=== PATIENT | male | born 1995 | race Caucasian/White ===

== ENCOUNTER 2018-12-27 17:17 | Emergency (ER) | payer SELFPAY ==
[~2018-12-27] VITALS: Ht 182.9 cm; Wt 68.0 kg
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
--- OUTSIDE RECORDS SUMMARY | 2018-12-27 17:21 | XMS REPORT | Clinical Summary ---
Author Author [facility] Organization [facility] Address Unknown Phone Unavailable Care Team Providers Care Certified Medical Transcriptionist Name Role Phone Yo Gutierrez MD PCP Allergies No Known Allergies Current Medications Prescription Sig. Disp. Refills Start End Date Status Date acetaminophen (TYLENOL) Take 1 tablet by mouth 30 tablet 0 12/26/19 Active 500 mg tabletIndications: every 6 hours as needed 18 Closed nondisplaced for Pain. fracture of neck of fourth metacarpal bone of right hand, initial encounter ibuprofen (MOTRIN) 400 mg Take 1 tablet by mouth 30 tablet 0 12/26/19 Active tabletIndications: Closed every 6 hours as needed 18 nondisplaced fracture of for Pain. neck of fourth metacarpal bone of right hand, initial encounter QUEtiapine (SEROQUEL) 300 Take 1 tablet by mouth at 30 tablet 1 01/23/20 Active mg tabletIndications: bedtime nightly. 18 Bipolar and related disorder cloNIDine HCl (CATAPRES) Take 1 tablet by mouth 3 90 tablet 1 01/23/20 Active 0.1 mg tabletIndications: times daily. 18 Severe benzodiazepine use disorder, Anxiety citalopram (CELEXA) 40 mg Take 1 tablet by mouth 30 tablet 1 01/23/20 Active tabletIndications: daily. 18 Bipolar and related disorder, Anxiety Active Problems Problem Noted Date Bipolar and related disorder 01/22/2018 Severe benzodiazepine use disorder 01/22/2018 Tobacco use disorder 01/22/2018 Cannabis use disorder, moderate, in early remission 01/22/2018 Right hand pain 12/25/2017 Closed fracture of right hand 09/27/2016 Fracture of phalanx of right ring finger 09/27/2016 Closed fracture of phalanx of right ring finger 09/27/2016 Major depressive disorder, recurrent, unspecified Resolved Problems Problem Noted Date Resolved Date Adjustment disorder with mixed disturbance of emotions and conduct 08/01/2015 01/22/2018 Benzodiazepine dependence in remission 08/01/2015 01/22/2018 Depression 01/22/2018 Benzodiazepine overdose of undetermined intent 01/22/2018 Insomnia 01/22/2018 Moderate episode of recurrent major depressive disorder 01/22/2018 Moderate benzodiazepine use disorder 01/22/2018 Encounters Date Type Specialty Care Team Description 01/27/2018 Pharmacy Visit 01/24/2018 Pharmacy Visit 01/22/2018 Office Visit Psychiatry Judah Ortega MD Bipolar and related disorder (Primary Dx); Health care maintenance; Severe benzodiazepine use disorder; Cannabis use disorder, moderate, in early remission; Tobacco use disorder; Anxiety 01/15/2018 Office Visit Orthopedics Krystle Magdaleno NP Closed nondisplaced NohemyDale F, fracture of neck of MD fourth metacarpal bone of right hand, initial encounter (Primary Dx); Right hand pain 01/15/2018 Hospital Radiology Juan Ramon Bejarano MD Right hand pain Encounter 01/08/2018 Office Visit Family Practice Yo Gutierrez MD Closed displaced fracture of phalanx of right ring finger, unspecified phalanx, initial encounter (Primary Dx); Mood disorder 12/31/2017 Nurse Only Infectious Diseases Emy Marion RN At high risk for tuberculosis infection (Primary Dx) 12/25/2017 Emergency Emergency Medicine Neri Bonner MD Closed nondisplaced fracture of neck of fourth metacarpal bone of right hand, initial encounter (Primary Dx); Right hand pain after 01/28/2017 Immunizations Name Dates Previously Given Next Due TDap (Tetanus Toxoid, 01/08/2018 Reduced Diphtheria Toxoid And Acellular Pertussis, Absorbed) Social History Tobacco Use Types Packs/Day Years Used Date Never Smoker Smokeless Tobacco: Never Used Tobacco Cessation: Counseling Given: No Alcohol Use Drinks/Week oz/Week Comments Yes occasional Sex Assigned at Date Recorded Not on file Last Filed Vital Signs Vital Sign Reading Time Taken Blood Pressure 113/76 01/22/2018 8:08 AM CDT Pulse 72 01/22/2018 8:08 AM CDT Temperature 36.6 C (97.9 F) 01/22/2018 8:08 AM CDT Respiratory Rate 20 01/22/2018 8:08 AM CDT Oxygen Saturation 97% 01/22/2018 8:08 AM CDT Inhaled Oxygen - - Concentration Weight 69.4 kg (153 lb) 01/22/2018 8:08 AM CDT Height 182.9 cm (6') 01/22/2018 8:08 AM CDT Body Mass Index 20.75 01/22/2018 8:08 AM CDT Plan of Treatment Date Type Specialty Care Team Description 02/09/2018 Office Visit Orthopedics Hector Araujo MD [address] [place] [id number] 03/26/2018 Office Visit Psychiatry Pascual Marie, ResidentND Department of Psychiatry - [address] [place] [address] Health Maintenance Due Date Last Done Comments IMM MenB (1 of 2 - 2006 Bexsero 2-Dose Series) IMM Influenza Seasonal 01/12/2018Jan to June (>/=19 yrs) Procedures Procedure Name Priority Date/Time Associated Diagnosis Comments XRAY HAND 3 VIEWS MIN Routine 01/15/2018 Right hand pain Results for this 12:01 PM CDT procedure are in the results section. HEMOGLOBIN A1C Routine 01/08/2018 Mood disorder Results for this 11:15 AM CDT procedure are in the results section. FREE T4 Routine 01/08/2018 Mood disorder Results for this 11:15 AM CDT procedure are in the results section. TSH Routine 01/08/2018 Mood disorder Results for this 11:15 AM CDT procedure are in the results section. SYPHILIS SCREEN FOR Routine 01/08/2018 Mood disorder Results for this INFECTION 11:15 AM CDT procedure are in the results section. HIV-1/HIV-2 ROUTINE Routine 01/08/2018 Mood disorder Results for this SCREENING 11:15 AM CDT procedure are in the results section. LIVER PROFILE Routine 01/08/2018 Mood disorder Results for this 11:15 AM CDT procedure are in the results section. BASIC METABOLIC PANEL Routine 01/08/2018 Mood disorder Results for this 11:15 AM CDT procedure are in the results section. CBC/DIFF Routine 01/08/2018 Mood disorder Results for this 11:15 AM CDT procedure are in the results section. SPLINT: SPLINT Routine 12/25/2017 Closed nondisplaced Results for this APPLICATION 10:33 PM CDT fracture of neck of procedure are in the fourth metacarpal bone of results section. right hand, initial encounter XRAY WRIST 3 VIEWS MIN STAT 12/25/2017 Right hand pain Results for this 10:02 PM CDT procedure are in the results section. XRAY HAND 3 VIEWS - STAT 12/25/2017 Right hand pain Results for this ROUTINE 10:02 PM CDT procedure are in the results section. after 01/28/2017 Results * XRAY HAND 3 VIEWS MIN (01/15/2018 12:01 PM) Impressions Performed At IMPRESSION: SMS 1.Interval improved visualization of nondisplaced minimally comminuted fracture of the fourth metacarpal neck. 2.Remote fracture deformity of the third metacarpal shaft, fifth metacarpal neck and ring finger middle phalanx. Signed By: Libia Colon MD, 01/15/2018 4:05 PM Narrative Performed At EXAM: XR RIGHT HAND 3 VIEWS [facility] DATE:01/15/2018 12:01 PM INDICATION: PAIN COMPARISON: 12/25/2017 [...] MD, 01/15/2018 4:05 PM Performing Organization Address [facility] Phone Number SMS * SYPHILIS SCREEN FOR INFECTION (01/08/2018 11:15 AM) Treponemal Ab Negative BT DIAGNOSTIC IMMUNOLOGY Final Report Negative BT DIAGNOSTIC IMMUNOLOGY Performing Organization Address [facility] [place] Phone Number MISYS BT DIAGNOSTIC IMMUNOLOGY * HIV-1/HIV-2 ROUTINE SCREENING (01/08/2018 11:15 AM) HIV-1/HIV-2 Negative NEG BT MAIN-STATION 3 Performing Organization Address [facility] [place] Phone Number MISYS BT MAIN-STATION 3 * HEMOGLOBIN A1C (01/08/2018 11:15 AM) Hemoglobin A1c 5.3 4.3 - 6.1 % BT DIAGNOSTIC IMMUNOLOGY Est Average Gluc 105.4 mg/dL BT DIAGNOSTIC IMMUNOLOGY Specimen Blood Performing Organization Address [facility] [place] Phone Number MISYS BT DIAGNOSTIC IMMUNOLOGY * TSH (01/08/2018 11:15 AM) TSH 3.12 0.57 - 3.74 uIU/mL BT MAIN-STATION 1 Specimen Blood Performing Organization Address [facility] [place] Phone Number MISYS BT MAIN-STATION 1 * FREE T4 (01/08/2018 11:15 AM) Free T4 0.61 0.61 - 1.18 ng/dl BT MAIN-STATION 1 Specimen Blood Performing Organization Address [facility] [place] Phone Number MISYS BT MAIN-STATION 1 * LIVER PROFILE (01/08/2018 11:15 AM) T Protein 7.1 6.0 - 8.3 g/dL [...] MAIN-STATION 1 Specimen Blood Performing Organization Address City/State/Zipcode Phone Number MISYS BT MAIN-STATION 1 * CBC/DIFF (01/08/2018 11:15 AM) WBC 6.2 4.5 - 12.0 K/uL BT [...] 400 K/uL BT MAIN-STATION 2 Mean Platelet Volume 11.3 9.4 - 12.4 fL BT MAIN-STATION 2 Percent NRBC 0.0 BT MAIN-STATION 2 [...] 0.08 K/uL BT MAIN-STATION 2 Absol Immat Gran 0.02 0.00 - 0.03 K/uL BT MAIN-STATION 2 Specimen Blood Performing Organization Address City/State/Zipcode Phone Number MISYS MAIN-STATION 2 * BASIC METABOLIC PANEL (01/08/2018 11:15 AM) CO2 29 21 - 31 mmol/L BT [...] mL/min/1.73 m2 BT MAIN-STATION 1 GFR, Estim, Afr-Am >60 mL/min/1.73 m2 BT MAIN-STATION 1 Specimen Blood Performing Organization Address City/State/Zipcode Phone Number MISYS BT MAIN-STATION 1 * SPLINT: SPLINT APPLICATION (12/25/2017 10:33 PM) Narrative Performed At Krystle Magdaleno NP 12/26/20173:36 [...] procedure:Tolerated well, no immediate complications * XRAY HAND 3 VIEWS - ROUTINE (12/25/2017 10:02 PM) Impressions Performed At IMPRESSION: SMS 1. Suspected nondisplaced fracture of the fourth metacarpal neck. Please correlate for focal tenderness. 2. Old, healed fracture of the fifth metacarpal neck, fourth and third metacarpal shaft, finger middle phalanx Signed By: Pascale Real MD, 12/25/2017 10:10 PM Narrative Performed At EXAM: XR RIGHT HAND 3 VIEWS SMS EXAM: XR RIGHT WRIST 3 VIEWS DATE: [...] identified. Procedure Note Interface, Rad/Mammog In - 12/25/2017 10:15 PM CDT [...] Performing Organization Address City/State/Zipcode Phone Number SMS * XRAY WRIST 3 VIEWS MIN (12/25/2017 10:02 PM) Impressions Performed At IMPRESSION: SMS 1. Suspected nondisplaced fracture of the fourth metacarpal neck. Please correlate for focal tenderness. 2. Old, healed fracture of the fifth metacarpal neck, fourth and third metacarpal shaft, finger middle phalanx Signed By: Pascale Real MD, 12/25/2017 10:10 PM Narrative Performed At EXAM: XR RIGHT HAND 3 VIEWS SMS EXAM: XR RIGHT WRIST 3 VIEWS DATE: [...] identified. Procedure Note Interface, Rad/Mammog In - 12/25/2017 10:15 PM CDT [...] Organization Address City/State/Zipcode Phone Number SMS after 01/28/2017
--- OUTSIDE RECORDS SUMMARY | 2018-12-27 17:21 | XMS REPORT | Clinical Summary ---
Author Author [facility] Organization [facility] Address Unknown Phone Unavailable Care Team Providers Care Slice Plug Cutter Operator Name Role Phone Yo Gutierrez MD PCP [...] hand pain 12/25/2017 Emergency Emergency Medicine after 06/07/2017 Immunizations Name Dates Previously Given Next Due Influenza Vaccine 02/05/2018 (Deferred: Other) Tdap (Tetanus Toxoid, 01/08/2018 Reduced Diphtheria Toxoid And [...] Body Mass Index 20.34 Plan of Treatment Health Maintenance Due Date Last Done Comments IMM Influenza Seasonal 01/12/2018 Oct to June (>/=19 yrs) Procedures Comments Procedure [...] hand pain ROUTINE 10:02 PM CDT after 06/07/2017 Results * XRAY HAND 3 VIEWS - ROUTINE (02/09/2018 1:20 PM CDT) Only the most recent of 2 results within the time period is included. Impressions Performed At IMPRESSION:Expected interval healing of right fourth digit metacarpal SMS neck fracture. The fracture line remains faintly visible. This [facility] radiology report is a preliminary resident dictation until finalized by an attending.Changes to this preliminary report may occur in an additional preliminary or finalized version. Dictated By: Leticia Fitzgerald MD, 02/09/2018 2:49 PM I have reviewed the study and agree with the findings in this report. Signed By: Андрей Chin MD, 02/09/2018 3:17 PM Narrative Performed At EXAM: XR RIGHT HAND 3 VIEWS [facility] DATE:02/09/2018 1:20 PM INDICATION: right hand fracture. Closed displaced fracture of neck of right fourth metacarpal bone with routine healing COMPARISON: Right hand radiographs in 4018. TECHNIQUE:PA, lateral and oblique hand radiographs DISCUSSION: [...] The fracture line remains faintly visible. This [facility] radiology report is a preliminary resident dictation until finalized by an attending. Changes to this preliminary report may occur in an additional preliminary or finalized version. Dictated By: Leticia Fitzgerald MD, 02/09/2018 2:49 PM I have reviewed the study and agree with the findings in this report. Signed By: Андрей Chin MD, 02/09/2018 3:17 PM Performing Organization Address City/State/Zipcode Phone Number SMS * XRAY HAND 3 [...] At EXAM: XR RIGHT HAND 3 VIEWS [facility] DATE:01/15/2018 12:01 PM INDICATION: PAIN COMPARISON: 12/25/2017 [...] MD, 01/15/2018 4:05 PM Performing Organization Address [facility] Phone Number SMS * SYPHILIS SCREEN FOR INFECTION (01/08/2018 11:15 AM CDT) Treponemal Ab Negative BT DIAGNOSTIC IMMUNOLOGY Final Report Negative BT DIAGNOSTIC IMMUNOLOGY Performing Organization Address [facility] Phone Number MISYS BT DIAGNOSTIC IMMUNOLOGY * HIV-1/HIV-2 ROUTINE SCREENING (01/08/2018 11:15 AM CDT) HIV-1/HIV-2 Negative NEG BT MAIN-STATION 3 Performing Organization Address [facility] Phone Number MISYS BT MAIN-STATION 3 * HEMOGLOBIN A1C (01/08/2018 11:15 AM CDT) Hemoglobin A1c 5.3 4.3 - 6.1 % BT DIAGNOSTIC IMMUNOLOGY Est Average 105.4 mg/dL BT DIAGNOSTIC Gluc IMMUNOLOGY Specimen Blood Performing Organization Address [facility] Phone Number MISYS BT DIAGNOSTIC IMMUNOLOGY * TSH (01/08/2018 11:15 AM CDT) TSH 3.12 0.57 - 3.74 uIU/mL BT MAIN-STATION 1 Specimen Blood Performing Organization Address [facility] Phone Number MISYS BT MAIN-STATION 1 * FREE T4 (01/08/2018 11:15 AM CDT) Free T4 0.61 0.61 - 1.18 ng/dl BT MAIN-STATION 1 Specimen Blood Performing Organization Address [facility] Phone Number MISYS BT MAIN-STATION 1 * [...] 1 * CBC/DIFF (01/08/2018 11:15 AM CDT) [facility] WBC 6.2 4.5 - 12.0 K/uL BT [...] Gran 2 Specimen Blood Performing Organization Address [facility] Phone Number MISYS MAIN-STATION 2 * BASIC METABOLIC PANEL (01/08/2018 11:15 AM CDT) [facility] CO2 29 21 - 31 mmol/L BT [...] Afr-Am 1 Specimen Blood Performing Organization Address [facility] Phone Number MISYS MAIN-STATION 1 * SPLINT: SPLINT APPLICATION (12/25/2017 [...] Organization Address City/State/Zipcode Phone Number SMS after 06/07/2017 Insurance Type Payer Benefit Subscriber ID Effective Phone Address Plan / Dates Group AETNA AETNA xxxxxxxxxx 2017-P [phone] [id number] [place] [address] HOMELESS LAUREN HOMELESS xxxxxxx 2017-8 [address] [place] [address] Advance Directives For more information, please contact: [address] [address] Date Inactivated Comments Code Status Date Activated 10/07/2016 4:47 PM Full Code 10/01/2016 8:46 PM
--- OUTSIDE RECORDS SUMMARY | 2018-12-27 17:21 | XMS REPORT | Encounter Summary ---
Author Organization Unknown Address [address] [place] [id number] Phone [phone] Reason for Visit Medical Complaint Instructions 1. Gastroenteritis gastroenteritis: care instructions ciprofloxacin 500 mg tablet Levsin/SL 0.125 mg sublingual tablet 2. Nausea and vomiting ondansetron 4 mg disintegrating tablet nausea and vomiting: care instructions Discussion Note Pt is in NAD; Verbalizes understanding of all instructions with no questions at this time. Plan of Care Patient Instructions Stay hydrated, eat a liquid diet for the first four hours. Stay away from fried and spicy foods until symptoms resolve. If you do experience improvement in your symptoms within the next four hours, advance yourself to a carbohydrate-rich diet such as white rice, white bread, and crackers. Within the next four hours thereafter, you can advance to lean meats such as chicken, fish, and turkey. Four hours thereafter if symptoms do improve, then advance to a regular diet. Take pedialyte, gatorade or powerade to stay properly hydrated. Take Ondasetron for nausea as directed. Start Ciprofloxacin and take as directed. Take levsin for stomach ache/cramping as directed. Follow up with your PCP within 2-3 should symptoms worsen as discussed. Reminders Provider Appointments None recorded. Lab None recorded. Referral None recorded. Procedures None recorded. Surgeries None recorded. Imaging None recorded. Medications Name Start Date ciprofloxacin 500 mg tablet Take 1 tablet every 12 hours by oral route as directed for 7 days. Levsin/SL 0.[address] 1 tablet every 4 hours by sublingual route as needed for 4 days. ondansetron 4 mg disintegrating tablet Take 2 tablets every 12 hours by oral route as needed for 4 days. ondansetron 8 mg disintegrating tablet Medications Administered None recorded. Vitals Height Weight BMI Blood Pressure 6 ft 160 lbs 21.7 124/72 Lab Results None recorded. Allergies Code Code System Name Reaction Severity Onset NKDA Problems None recorded. Procedures None recorded. Vaccine List None recorded. Social History Smoking Status Never Smoker Past Encounters 09/04/2016 Gastroenteritis; Nausea and Vomiting Norma Trejo, [facility]: [address] [facility], [place] [address], Ph. History of Present Illness Lkswus-Ajbmadbo-Onmtfihg / Abdominal Pain Reported By: Patient HPI: Quality: worsening, loose, intermittent. Severity: moderate. Duration: present for < 1 week. Onset/Timing: worse in the morning, worse with meals, gradual onset, 4-10 times a day. Context: no one else with similar symptoms, no recent camping, no recent picnic, no possible food sources, no recent travel. Alleviating factors: ; none. Aggravating factors: eating. Associated Symptoms: no excess gas, no fever/chills, no rash, no joint pain, no weight loss, no heartburn, no blood in stool, no mucus in stool, no black or tarry stools, no nutrient deficiency, no headache, no feeling of fullness/mass in throat, no muscle aches, no bitter taste in the mouth, no difficulty swallowing (dysphagia), abdominal pain, nausea, vomiting, weakness, cramping; diarrhea Review of Systems:ROS as noted in the HPI Review of Systems Basic Reported By: Patient Physical Exam Adult Basic, 14-21 Yr Male, Adult Female Complete, Adult Male Complete Reported By: Patient Constitutional: General Appearance: healthy-appearing, well-nourished, well-developed. Level of Distress: NAD. Ambulation: ambulating normally Psychiatric: Mental Status: active and alert. Orientation: to time, to place, to person Eyes: Lids and Conjunctivae: non-injected, no pallor Jji-Tmcf-Vfvyk-Throat: Lips, Teeth, and Gums: no mouth or lip ulcers, no bleeding gums, normal dentition. Oropharynx: moist mucous membranes, no erythema, no exudates, tonsils not enlarged Neck: Neck: supple. Lymph Nodes: no cervical LAD Lungs: Respiratory effort: no dyspnea, no tachypnea, no use of accessory muscles, no intercostal retractions. Auscultation: breath sounds normal Cardiovascular: Heart Auscultation: RRR, no murmurs Abdomen: Palpation: non-distended, no guarding, no tenderness. Liver: non-tender, no hepatomegaly. Spleen: non-tender, no splenomegaly. Hernia: no palpable hernias. Bowel Sounds: high-pitched. Inspection and Palpation: soft, no rebound tenderness, no masses, no CVA tenderness
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
--- OUTSIDE RECORDS SUMMARY | 2018-12-27 17:22 | XMS REPORT | Clinical Summary ---
Author Author [facility] Organization [facility] Address Unknown Phone Unavailable Care Team Providers Care Spring Inspector Name Role Phone Yo Gutierrez MD PCP [...] hand pain 12/25/2017 Emergency Emergency Medicine after 05/25/2017 Immunizations Name Dates Previously Given Next Due [...] hand pain ROUTINE 10:02 PM CDT after 05/25/2017 Results * XRAY HAND 3 VIEWS - ROUTINE (02/09/2018 1:20 PM CDT) Only the most recent of 2 results within the time period is included. Impressions Performed At IMPRESSION:Expected interval healing of right fourth digit metacarpal SMS neck fracture. The fracture line remains faintly visible. This [facility] radiology report is a preliminary resident dictation until finalized by an attending.Changes to this preliminary report may occur in an additional preliminary or finalized version. Dictated By: Leticia Fitzgerald MD, 02/09/2018 2:49 PM I have reviewed the study and agree with the findings in this report. Signed By: Андрей Chin MD, 02/09/2018 3:17 PM Narrative Performed At EXAM: XR RIGHT HAND 3 VIEWS [facility] DATE:02/09/2018 1:20 PM INDICATION: right hand fracture. [...] The fracture line remains faintly visible. This [facility] radiology report is a preliminary resident dictation [...] At EXAM: XR RIGHT HAND 3 VIEWS [facility] DATE:01/15/2018 12:01 PM INDICATION: PAIN COMPARISON: [...] MD, 01/15/2018 4:05 PM Performing Organization Address [facility] Phone Number SMS * SYPHILIS SCREEN FOR INFECTION (01/08/2018 11:15 AM CDT) Treponemal Ab Negative BT DIAGNOSTIC IMMUNOLOGY Final Report Negative BT DIAGNOSTIC IMMUNOLOGY Performing Organization Address [facility] Phone Number MISYS BT DIAGNOSTIC IMMUNOLOGY * HIV-1/HIV-2 ROUTINE SCREENING (01/08/2018 11:15 AM CDT) HIV-1/HIV-2 Negative NEG BT MAIN-STATION 3 Performing Organization Address [facility] Phone Number MISYS BT MAIN-STATION 3 * HEMOGLOBIN A1C (01/08/2018 11:15 AM CDT) Hemoglobin A1c 5.3 4.3 - 6.1 % BT DIAGNOSTIC IMMUNOLOGY Est Average 105.4 mg/dL BT DIAGNOSTIC Gluc IMMUNOLOGY Specimen Blood Performing Organization Address [facility] Phone Number MISYS BT DIAGNOSTIC IMMUNOLOGY * TSH (01/08/2018 11:15 AM CDT) TSH 3.12 0.57 - 3.74 uIU/mL BT MAIN-STATION 1 Specimen Blood Performing Organization Address [facility] Phone Number MISYS BT MAIN-STATION 1 * FREE T4 (01/08/2018 11:15 AM CDT) Free T4 0.61 0.61 - 1.18 ng/dl BT MAIN-STATION 1 Specimen Blood Performing Organization Address [facility] Phone Number MISYS BT [...] 1 * CBC/DIFF (01/08/2018 11:15 AM CDT) [facility] WBC 6.2 4.5 - 12.0 K/uL [...] Gran 2 Specimen Blood Performing Organization Address [facility] Phone Number MISYS MAIN-STATION 2 * BASIC METABOLIC PANEL (01/08/2018 11:15 AM CDT) [facility] CO2 29 21 - 31 mmol/L [...] Afr-Am 1 Specimen Blood Performing Organization Address [facility] Phone Number MISYS MAIN-STATION 1 * SPLINT: [...] Organization Address City/State/Zipcode Phone Number SMS after 05/25/2017 Insurance Type Payer Benefit Subscriber ID Effective Phone Address Plan / Dates Group AETNA AETNA xxxxxxxxxx 2017-P [phone] POS resent [id number] [place] [address] HOMELESS LAUREN HOMELESS xxxxxxx 2017-8 [address] / [place] [address] Advance Directives For more information, please contact: [address] [address] Date Inactivated Comments Code Status Date Activated 10/07/2016 4:47 PM Full Code 10/01/2016 8:46 PM
--- OUTSIDE RECORDS SUMMARY | 2018-12-27 17:22 | XMS REPORT | Clinical Summary ---
Author Author [facility] Organization [facility] Address Unknown Phone Unavailable Care Team Providers Care Legal Nurse Consultant Name Role Phone Yo Gutierrez MD PCP [...] hand pain 12/25/2017 Emergency Emergency Medicine after 07/01/2017 Immunizations Name Dates Previously Given Next Due [...] hand pain ROUTINE 10:02 PM CDT after 07/01/2017 Results * XRAY HAND 3 VIEWS - ROUTINE (02/09/2018 1:20 PM CDT) Only the most recent of 2 results within the time period is included. Impressions Performed At IMPRESSION:Expected interval healing of right fourth digit metacarpal SMS neck fracture. The fracture line remains faintly visible. This [facility] radiology report is a preliminary resident [...] At EXAM: XR RIGHT HAND 3 VIEWS [facility] DATE:02/09/2018 1:20 PM INDICATION: right hand [...] The fracture line remains faintly visible. This [facility] radiology report is a preliminary resident [...] At EXAM: XR RIGHT HAND 3 VIEWS [facility] DATE:01/15/2018 12:01 PM INDICATION: PAIN COMPARISON: [...] MD, 01/15/2018 4:05 PM Performing Organization Address [facility] Phone Number SMS * SYPHILIS SCREEN FOR INFECTION (01/08/2018 11:15 AM CDT) Treponemal Ab Negative BT DIAGNOSTIC IMMUNOLOGY Final Report Negative BT DIAGNOSTIC IMMUNOLOGY Performing Organization Address [facility] Phone Number MISYS BT DIAGNOSTIC IMMUNOLOGY * HIV-1/HIV-2 ROUTINE SCREENING (01/08/2018 11:15 AM CDT) HIV-1/HIV-2 Negative NEG BT MAIN-STATION 3 Performing Organization Address [facility] Phone Number MISYS BT MAIN-STATION 3 * HEMOGLOBIN A1C (01/08/2018 11:15 AM CDT) Hemoglobin A1c 5.3 4.3 - 6.1 % BT DIAGNOSTIC IMMUNOLOGY Est Average 105.4 mg/dL BT DIAGNOSTIC Gluc IMMUNOLOGY Specimen Blood Performing Organization Address [facility] Phone Number MISYS BT DIAGNOSTIC IMMUNOLOGY * TSH (01/08/2018 11:15 AM CDT) TSH 3.12 0.57 - 3.74 uIU/mL BT MAIN-STATION 1 Specimen Blood Performing Organization Address [facility] Phone Number MISYS BT MAIN-STATION 1 * FREE T4 (01/08/2018 11:15 AM CDT) Free T4 0.61 0.61 - 1.18 ng/dl BT MAIN-STATION 1 Specimen Blood Performing Organization Address [facility] Phone Number MISYS BT MAIN-STATION 1 [...] 1 * CBC/DIFF (01/08/2018 11:15 AM CDT) [facility] WBC 6.2 4.5 - 12.0 K/uL BT [...] Gran 2 Specimen Blood Performing Organization Address [facility] Phone Number MISYS MAIN-STATION 2 * BASIC METABOLIC PANEL (01/08/2018 11:15 AM CDT) [facility] CO2 29 21 - 31 mmol/L BT [...] Afr-Am 1 Specimen Blood Performing Organization Address [facility] Phone Number MISYS MAIN-STATION 1 * [...] Organization Address City/State/Zipcode Phone Number SMS after 07/01/2017 Insurance Type Payer Benefit Subscriber ID Effective Phone Address Plan / Dates Group AETNA AETNA xxxxxxxxxx 2017-P [phone] resent [id number] [place] [address] HOMELESS LAUREN HOMELESS xxxxxxx 2017-8 [address] / [place] [address] Advance Directives For more information, please contact: [address] [address] Date Inactivated Comments Code Status Date Activated 10/07/2016 4:47 PM Full Code 10/01/2016 8:46 PM
--- OUTSIDE RECORDS SUMMARY | 2018-12-27 17:22 | XMS REPORT | Clinical Summary ---
Author Author [facility] Organization [facility] Address Unknown Phone Unavailable Care Team Providers Care Director Security Risk Management Name Role Phone Yo Gutierrez MD PCP [...] Encounters Date Type Specialty Care Team Description 02/09/2018 Hospital Radiology Yo Gutierrez MD Closed displaced fracture Encounter of neck of right fourth metacarpal bone with routine healing 02/09/2018 Office Visit Orthopedics Hector Araujo MD Closed displaced fracture of neck of right fourth metacarpal bone with routine healing (Primary Dx) 02/05/2018 Office Visit Family Practice Shirley Brand NP Viral gastroenteritis (Primary Dx) 01/27/2018 Pharmacy Visit 01/24/2018 Pharmacy Visit 01/22/2018 Office Visit Psychiatry Judah Ortega MD Bipolar and related disorder (Primary Dx); Health care maintenance; Severe benzodiazepine use disorder; Cannabis use disorder, moderate, in early remission; Tobacco use disorder; Anxiety 01/15/2018 Office Visit Orthopedics Krystle Magdaleno NP Closed nondisplaced Dale Slater F, fracture of neck of MD fourth [...] encounter (Primary Dx); Right hand pain after 02/12/2017 Immunizations Name Dates Previously Given Next Due [...] Vital Sign Reading Time Taken Blood Pressure 114/78 02/09/2018 12:52 PM CDT Pulse 74 02/09/2018 12:52 PM CDT Temperature 36.8 C (98.3 F) 02/09/2018 12:52 PM CDT Respiratory Rate 18 02/09/2018 12:52 PM CDT Oxygen Saturation 97% 01/22/2018 8:08 AM CDT Inhaled Oxygen - - Concentration Weight 68 kg (150 lb) 02/09/2018 12:52 PM CDT Height 182.9 cm (6') 02/09/2018 12:52 PM CDT Body Mass Index 20.34 02/09/2018 12:52 PM CDT Plan of Treatment Date Type Specialty Care Team Description 03/26/2018 Office Visit Psychiatry Pascual Marie, ResidentMD Department of Psychiatry - [address] [place] [address] Health Maintenance Due Date Last Done Comments IMM MenB (1 of 2 - 2006 Bexsero 2-Dose Series) IMM Influenza Seasonal 01/12/2018 Oct to June (>/=19 yrs) Procedures Procedure Name Priority Date/Time Associated Diagnosis Comments XRAY HAND 3 VIEWS - Routine 02/09/2018 Closed displaced fracture Results for this ROUTINE 1:20 PM CDT of neck of right fourth procedure are in the metacarpal bone with results section. routine healing XRAY HAND 3 VIEWS MIN [...] procedure are in the results section. after 02/12/2017 Results * XRAY HAND 3 VIEWS - ROUTINE (02/09/2018 1:20 PM) Only the most recent of 2 results within the time period is included. Impressions Performed At IMPRESSION:Expected interval healing of right fourth digit metacarpal SMS neck fracture. The fracture line remains faintly visible. This [facility] radiology report is a preliminary [...] EXAM: XR RIGHT HAND [address] [facility] DATE:02/09/2018 1:20 PM INDICATION: right hand [...] soft tissue abnormality is identified. Procedure Note Chetna, Rad/Mammog In - 02/09/2018 3:22 PM CDT [...] The fracture line remains faintly visible. This [facility] radiology report is a preliminary resident dictation until finalized by an attending. Changes to this preliminary report may occur in an additional preliminary or finalized version. Dictated By: Leticia Fitzgerald MD, 02/09/2018 2:49 PM I have reviewed the study and agree with the findings in this report. Signed By: Андрей Chin MD, 02/09/2018 3:17 PM Performing Organization Address City/State/[facility] Phone Number SMS * XRAY [...] soft tissue abnormality is identified. Procedure Note Chetna, Rad/Mammog In - 01/15/2018 4:10 PM CDT [...] MD, 01/15/2018 4:05 PM Performing Organization Address [facility] Phone Number SMS * SYPHILIS SCREEN FOR INFECTION (01/08/2018 11:15 AM) Treponemal Ab Negative BT DIAGNOSTIC IMMUNOLOGY Final Report Negative BT DIAGNOSTIC IMMUNOLOGY Performing Organization Address [facility] Phone Number MISYS BT DIAGNOSTIC IMMUNOLOGY * HIV-1/HIV-2 ROUTINE SCREENING (01/08/2018 11:15 AM) HIV-1/HIV-2 Negative NEG BT MAIN-STATION 3 Performing Organization Address [facility] Phone Number MISYS BT MAIN-STATION 3 * HEMOGLOBIN A1C (01/08/2018 11:15 AM) Hemoglobin A1c 5.3 4.3 - 6.1 % BT DIAGNOSTIC IMMUNOLOGY Est Average Gluc 105.4 mg/dL BT DIAGNOSTIC IMMUNOLOGY Specimen Blood Performing Organization Address [facility] Phone Number MISYS BT DIAGNOSTIC IMMUNOLOGY * TSH (01/08/2018 11:15 AM) TSH 3.12 0.57 - 3.74 uIU/mL BT MAIN-STATION 1 Specimen Blood Performing Organization Address [facility] Phone Number MISYS BT MAIN-STATION 1 * FREE T4 (01/08/2018 11:15 AM) Free T4 0.61 0.61 - 1.18 ng/dl BT MAIN-STATION 1 Specimen Blood Performing Organization Address [facility] Phone Number MISYS BT MAIN-STATION [...] MAIN-STATION 1 Specimen Blood Performing Organization Address [facility] Phone Number MISYS BT MAIN-STATION [...] MAIN-STATION 2 Specimen Blood Performing Organization Address [facility] Phone Number MISYS BT MAIN-STATION 2 * [...] MAIN-STATION 1 Specimen Blood Performing Organization Address [facility] Phone Number MISYS BT MAIN-STATION 1 * [...] EXAM: XR RIGHT HAND 3 VIEWS [facility] EXAM: XR RIGHT WRIST 3 VIEWS DATE: [...] Organization Address City/State/Zipcode Phone Number SMS after 02/12/2017
--- OUTSIDE RECORDS SUMMARY | 2018-12-27 17:22 | XMS REPORT | Clinical Summary ---
Author Author [facility] Organization [facility] Address Unknown Phone Unavailable Care Team Providers Care Odd Job Worker Name Role Phone Yo Gutierrez MD PCP [...] encounter (Primary Dx); Right hand pain after 02/04/2017 Immunizations Name Dates Previously Given Next Due [...] 02/09/2018 Office Visit Orthopedics Hector Araujo MD [address] [phone] 03/26/2018 Office Visit Psychiatry Pascual Marie, ResidentWI Department of Psychiatry - [address] [place] [address] Health Maintenance Due Date Last Done Comments [...] procedure are in the results section. after 02/04/2017 Results * XRAY HAND 3 VIEWS MIN (01/15/2018 12:01 PM) Impressions Performed At IMPRESSION: SMS 1.Interval improved visualization of nondisplaced minimally comminuted fracture of the fourth metacarpal neck. 2.Remote fracture deformity of the third metacarpal shaft, fifth metacarpal neck and ring finger middle phalanx. Signed By: Libia Colon MD, 01/15/2018 4:05 PM Narrative Performed At EXAM: XR RIGHT HAND 3 VIEWS [facility] DATE:01/15/2018 12:01 PM INDICATION: PAIN COMPARISON: 12/25/2017 [...] MD, 01/15/2018 4:05 PM Performing Organization Address [facility] Phone Number SMS * SYPHILIS SCREEN FOR INFECTION (01/08/2018 11:15 AM) Treponemal Ab Negative BT DIAGNOSTIC IMMUNOLOGY Final Report Negative BT DIAGNOSTIC IMMUNOLOGY Performing Organization Address [facility] Phone Number MISYS BT DIAGNOSTIC IMMUNOLOGY * HIV-1/HIV-2 ROUTINE SCREENING (01/08/2018 11:15 AM) HIV-1/HIV-2 Negative NEG BT MAIN-STATION 3 Performing Organization Address [facility] Phone Number MISYS BT MAIN-STATION 3 * HEMOGLOBIN A1C (01/08/2018 11:15 AM) Hemoglobin A1c 5.3 4.3 - 6.1 % BT DIAGNOSTIC IMMUNOLOGY Est Average Gluc 105.4 mg/dL BT DIAGNOSTIC IMMUNOLOGY Specimen Blood Performing Organization Address [facility] Phone Number MISYS BT DIAGNOSTIC IMMUNOLOGY * TSH (01/08/2018 11:15 AM) TSH 3.12 0.57 - 3.74 uIU/mL BT MAIN-STATION 1 Specimen Blood Performing Organization Address [facility] Phone Number MISYS BT MAIN-STATION 1 * FREE T4 (01/08/2018 11:15 AM) Free T4 0.61 0.61 - 1.18 ng/dl BT MAIN-STATION 1 Specimen Blood Performing Organization Address [facility] Phone Number MISYS BT MAIN-STATION [...] MAIN-STATION 1 Specimen Blood Performing Organization Address [facility] Phone Number MISYS BT MAIN-STATION [...] MAIN-STATION 2 Specimen Blood Performing Organization Address [facility] Phone Number MISYS BT MAIN-STATION 2 * [...] At EXAM: XR RIGHT HAND 3 VIEWS [facility] EXAM: XR RIGHT WRIST 3 [...] Organization Address City/State/Zipcode Phone Number SMS after 02/04/2017
--- OUTSIDE RECORDS SUMMARY | 2018-12-27 17:22 | XMS REPORT | Clinical Summary ---
Author Author [facility] Organization [facility] Address Unknown Phone Unavailable Care Team Providers Care Printed Circuit Board Designer Name Role Phone Yo Gutierrez MD PCP [...] Encounters Care Team Description Date Type Specialty oY Gutierrez MD Closed displaced fracture of neck [...] hand pain 12/25/2017 Emergency Emergency Medicine after 05/07/2017 Immunizations Name Dates Previously Given Next Due [...] hand pain ROUTINE 10:02 PM CDT after 05/07/2017 Results * XRAY HAND 3 VIEWS - ROUTINE (02/09/2018 1:20 PM CDT) Only the most recent of 2 results within the time period is included. Impressions Performed At IMPRESSION:Expected interval healing of right fourth digit metacarpal SMS neck fracture. The fracture line remains faintly visible. This [facility] radiology report is a preliminary resident [...] At EXAM: XR RIGHT HAND 3 VIEWS [facility] DATE:02/09/2018 1:20 PM INDICATION: right hand fracture. [...] The fracture line remains faintly visible. This [facility] radiology report is a preliminary resident [...] At EXAM: XR RIGHT HAND 3 VIEWS [facility] DATE:01/15/2018 12:01 PM INDICATION: PAIN COMPARISON: 12/25/2017 [...] MD, 01/15/2018 4:05 PM Performing Organization Address [facility] Phone Number SMS * SYPHILIS SCREEN FOR INFECTION (01/08/2018 11:15 AM CDT) Treponemal Ab Negative BT DIAGNOSTIC IMMUNOLOGY Final Report Negative BT DIAGNOSTIC IMMUNOLOGY Performing Organization Address [facility] Phone Number MISYS BT DIAGNOSTIC IMMUNOLOGY * HIV-1/HIV-2 ROUTINE SCREENING (01/08/2018 11:15 AM CDT) HIV-1/HIV-2 Negative NEG BT MAIN-STATION 3 Performing Organization Address [facility] Phone Number MISYS BT MAIN-STATION 3 * HEMOGLOBIN A1C (01/08/2018 11:15 AM CDT) Hemoglobin A1c 5.3 4.3 - 6.1 % BT DIAGNOSTIC IMMUNOLOGY Est Average 105.4 mg/dL BT DIAGNOSTIC Gluc IMMUNOLOGY Specimen Blood Performing Organization Address [facility] Phone Number MISYS BT DIAGNOSTIC IMMUNOLOGY * TSH (01/08/2018 11:15 AM CDT) TSH 3.12 0.57 - 3.74 uIU/mL BT MAIN-STATION 1 Specimen Blood Performing Organization Address [facility] Phone Number MISYS BT MAIN-STATION 1 * FREE T4 (01/08/2018 11:15 AM CDT) Free T4 0.61 0.61 - 1.18 ng/dl BT MAIN-STATION 1 Specimen Blood Performing Organization Address [facility] Phone Number MISYS BT [...] 1 * CBC/DIFF (01/08/2018 11:15 AM CDT) [facility] WBC 6.2 4.5 - 12.0 K/uL BT [...] Gran 2 Specimen Blood Performing Organization Address [facility] Phone Number MISYS MAIN-STATION 2 * BASIC METABOLIC PANEL (01/08/2018 11:15 AM CDT) [facility] CO2 29 21 - 31 mmol/L BT [...] Afr-Am 1 Specimen Blood Performing Organization Address [facility] Phone Number MISYS MAIN-STATION [...] PM Performing Organization Address City/State/Zipcode Phone Number [facility] after 05/07/2017 Insurance Type Payer Benefit Subscriber ID Effective Phone Address Plan / Dates Group AETNA AETNA xxxxxxxxxx 2017-P [phone] POS resent [id number] [place] [address] HOMELESS LAUREN HOMELESS xxxxxxx 2017-8 [address] / [place] [address] Advance Directives For more information, please contact: [address] [address] Date Inactivated Comments Code Status Date Activated 10/07/2016 4:47 PM Full Code 10/01/2016 8:46 PM
--- OUTSIDE RECORDS SUMMARY | 2018-12-27 17:23 | XMS REPORT ---
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 Allergies, Adverse Reactions, Alerts Allergy Name Allergy Type Status Severity Reaction(s) Onset Date Inactive Date Treating Clinician Comments No Known Allergies DA Active U 2018-07-29 00:00:00 No Known Allergies DA Active U 2018-03-10 00:00:00 No Known Allergies DA Active U 2017-12-21 00:00:00 No Known Allergies DA Active U 2016-09-26 00:00:00 Medications This patient has no known medications. Encounters Start Date/Time End Date/Time Encounter Type Admission Type Attending Clinicians Care Facility Care Department Encounter ID 2016-10-01 20:25:11 Inpatient [facility] [id number] 2018-03-26 00:00:00 2018-03-26 00:00:00 Outpatient [facility] [id number] 2018-02-09 13:12:52 2018-02-09 13:12:52 Outpatient [facility] [id number] 2018-02-09 12:51:57 2018-02-09 12:51:57 Outpatient [facility] [id number] 2018-02-05 09:11:42 2018-02-05 09:11:42 Outpatient [facility] [id number] 2018-01-27 00:00:00 2018-01-27 00:00:00 Outpatient [facility] [id number] 2018-01-26 00:00:00 2018-01-26 00:00:00 Outpatient [facility] [id number] 2018-01-22 08:07:09 2018-01-22 08:07:09 Outpatient [facility] [id number] 2018-01-15 11:45:14 2018-01-15 11:45:14 Outpatient [facility] [id number] 2018-01-15 11:44:35 2018-01-15 11:44:35 Outpatient [facility] [id number] 2018-01-08 11:18:12 2018-01-08 11:18:12 Outpatient [facility] [id number] 2018-01-08 10:23:47 2018-01-08 10:23:47 Outpatient [facility] [id number] 2018-01-06 12:07:35 2018-01-06 12:07:35 Outpatient [facility] [id number] 2018-01-05 00:00:00 2018-01-05 00:00:00 Outpatient [facility] [id number] 2017-12-31 11:46:37 2017-12-31 11:46:37 Outpatient [facility] [id number] 2017-12-25 21:47:44 2017-12-25 21:47:44 Emergency [facility] [id number] 2017-12-25 21:03:15 2017-12-25 21:03:15 Emergency [facility] [id number] 2016-10-11 00:00:00 2016-10-11 00:00:00 Outpatient [facility] [id number] 2016-09-27 16:17:54 2016-09-27 16:17:54 Emergency [facility] [id number] 2016-09-27 13:46:56 2016-09-27 13:46:56 Emergency [facility] [id number] 2016-09-27 00:00:00 2016-09-27 00:00:00 Outpatient [facility] [id number] Results Test Description Test Time Test Comments Text Results Atomic Results Result Comments URINALYSIS COMPLETE 2018-07-29 04:00:00 UA COLOR (test code=COLU) [place] YELLOW UA APPEARANCE (test code=APPU) TURBID CLEAR UA GLUCOSE DIPSTICK (test code=DGLUU) TRACE mg/dL NEGATIVE UA BILIRUBIN DIPSTICK (test code=BILU) 2+ (Mod 2.0-4.0) NEGATIVE UA KETONE DIPSTICK (test code=KETU) TRACE mg/dL NEGATIVE UA SPECIFIC GRAVITY (test code=SGU) >=1.030 1.001-1.035 UA BLOOD DIPSTICK (test code=TYSON) NEGATIVE NEGATIVE UA PH DIPSTICK (test code=LUIS) 5.5 5.0-8.0 UA PROTEIN DIPSTICK (test code=PROU) 1+ mg/dL Neg-15 UA UROBILINIOGEN DIPSTICK (test code=URO) 1 mg/dL (1+) mg/dL 0.0-0.2 UA NITRITE DIPSTICK (test code=ABEL) NEGATIVE NEGATIVE UA LEUKOCYTE ESTERASE W REFLEX (test code=LEUUR) NEGATIVE NEGATIVE UA WBC (test code=WBCU) 0-5 per HPF 0-5 UA RBC (test code=RBCU) 0-2 #/HPF 0-5 UA EPITHELIAL CELLS (test code=EPIU) FEW per HPF FEW UA BACTERIA (test code=BACU) FEW #/HPF NONE UA HYALINE CAST (test code=HYALU) 11-20 #/LPF 0-5 UA MUCUS (test code=MUCU) MANY #/LPF FEW Urine Source? Clean CatchDRUGS OF ABUSE SCREEN [id number] 04:00:00* Test Item Value Reference Range Comments URN COCAINE (test code=COCAURN) NEGATIVE <300 ng/mL URN CANNABINOIDS (test code=CANNABURN) POSITIVE <50 ng/mL This test provides only a preliminary test result. A morespecific alternate chemical method must be used in order toobtain a confirmed analytical result. Gas chromatography/mass spectrometry (GC/MS) is thepreferred confirmatory method. Other chemical confirmationmethods are available. Clinical consideration and professional judgment should be applied to any drug of abusetest result, particularly when preliminary positive resultsare used.Unconfirmed screening results must not be used fornon-medical purposes (e.g., employment testing, legaltesting). URN AMPHETAMINE (test code=AMPHETURN) POSITIVE <1000 ng/mL This test provides only a preliminary test result. A morespecific alternate chemical method must be used in order toobtain a confirmed analytical result. Gas chromatography/mass spectrometry (GC/MS) is thepreferred confirmatory method. Other chemical confirmationmethods are available. Clinical consideration and professional judgment should be applied to any drug of abusetest result, particularly when preliminary positive resultsare used.Unconfirmed screening results must not be used fornon-medical purposes (e.g., employment testing, legaltesting). URN BARBITURATE (test code=BARBITURN) NEGATIVE <200 ng/mL URN BENZODIAZEPINE (test code=BENZOURN) POSITIVE <200 ng/mL This test provides only a preliminary test result. A morespecific alternate chemical method must be used in order toobtain a confirmed analytical result. Gas chromatography/mass spectrometry (GC/MS) is thepreferred confirmatory method. Other chemical confirmationmethods are available. Clinical consideration and professional judgment should be applied to any drug of abusetest result, particularly when preliminary positive resultsare used.Unconfirmed screening results must not be used fornon-medical purposes (e.g., employment testing, legaltesting). URN OPIATES (test code=OPIATURN) POSITIVE <300 ng/mL This test provides only a preliminary test result. A morespecific alternate chemical method must be used in order toobtain a confirmed analytical result. Gas chromatography/mass spectrometry (GC/MS) is thepreferred confirmatory method. Other chemical confirmationmethods are available. Clinical consideration and professional judgment should be applied to any drug of abusetest result, particularly when preliminary positive resultsare used.Unconfirmed screening results must not be used fornon-medical purposes (e.g., employment testing, legaltesting). URN PHENCYCLIDINE (PCP) (test code=PHENCURN) NEGATIVE <25 ng/mL URN METHADONE (test code=METHAURN) NEGATIVE <300 ng/mL Urine Source? Clean CatchURINALYSIS [id number] 03:47:00* Test Item Value Reference Range Comments UA COLOR (test code=COLU) L[place] YELLOW UA APPEARANCE (test code=APPU) TURBID CLEAR UA GLUCOSE DIPSTICK (test code=DGLUU) TRACE mg/dL NEGATIVE UA BILIRUBIN DIPSTICK (test code=BILU) 2+ (Mod 2.0-4.0) NEGATIVE UA KETONE DIPSTICK (test code=KETU) TRACE mg/dL NEGATIVE UA SPECIFIC GRAVITY (test code=SGU) >=1.030 1.001-1.035 UA BLOOD DIPSTICK (test code=TYSON) NEGATIVE NEGATIVE UA PH DIPSTICK (test code=LUIS) 5.5 5.0-8.0 UA PROTEIN DIPSTICK (test code=PROU) 1+ mg/dL Neg-15 UA UROBILINIOGEN DIPSTICK (test code=URO) 1 mg/dL (1+) mg/dL 0.0-0.2 UA NITRITE DIPSTICK (test code=ABEL) NEGATIVE NEGATIVE UA LEUKOCYTE ESTERASE W REFLEX (test code=LEUUR) NEGATIVE NEGATIVE UA WBC (test code=WBCU) 0-5 per HPF 0-5 UA RBC (test code=RBCU) 0-2 #/HPF 0-5 UA EPITHELIAL CELLS (test code=EPIU) FEW per HPF FEW UA BACTERIA (test code=BACU) FEW #/HPF NONE UA HYALINE CAST (test code=HYALU) 11-20 #/LPF 0-5 UA MUCUS (test code=MUCU) MANY #/LPF FEW Urine Source? Clean CatchDRUGS OF ABUSE SCREEN [id number] 03:47:00* Test Item Value Reference Range Comments URN COCAINE (test code=COCAURN) <300 ng/mL URN CANNABINOIDS (test code=CANNABURN) <50 ng/mL URN AMPHETAMINE (test code=AMPHETURN) <1000 ng/mL URN BARBITURATE (test code=BARBITURN) <200 ng/mL URN BENZODIAZEPINE (test code=BENZOURN) <200 ng/mL URN OPIATES (test code=OPIATURN) <300 ng/mL URN PHENCYCLIDINE (PCP) (test code=PHENCURN) <25 ng/mL URN METHADONE (test code=METHAURN) <300 ng/mL Urine Source? Clean CatchURINALYSIS [id number] 03:44:00* Test Item Value Reference Range Comments UA COLOR (test code=COLU) YELLOW UA APPEARANCE (test code=APPU) CLEAR UA BILIRUBIN DIPSTICK (test code=BILU) NEGATIVE UA SPECIFIC GRAVITY (test code=SGU) 1.001-1.035 UA PH DIPSTICK (test code=LUIS) 5.0-8.0 UA UROBILINIOGEN DIPSTICK (test code=URO) mg/dL 0.0-0.2 UA NITRITE DIPSTICK (test code=ABEL) NEGATIVE UA LEUKOCYTE ESTERASE W REFLEX (test code=LEUUR) NEGATIVE UA WBC (test code=WBCU) 0-5 per HPF 0-5 UA RBC (test code=RBCU) 0-2 #/HPF 0-5 UA EPITHELIAL CELLS (test code=EPIU) FEW per HPF FEW UA BACTERIA (test code=BACU) FEW #/HPF NONE UA HYALINE CAST (test code=HYALU) 11-20 #/LPF 0-5 UA MUCUS (test code=MUCU) MANY #/LPF FEW Urine Source? Clean CatchDRUGS OF ABUSE SCREEN [id number] 03:44:00* Test Item Value Reference Range Comments URN COCAINE (test code=COCAURN) <300 ng/mL URN CANNABINOIDS (test code=CANNABURN) <50 ng/mL URN AMPHETAMINE (test code=AMPHETURN) <1000 ng/mL URN BARBITURATE (test code=BARBITURN) <200 ng/mL URN BENZODIAZEPINE (test code=BENZOURN) <200 ng/mL URN OPIATES (test code=OPIATURN) <300 ng/mL URN PHENCYCLIDINE (PCP) (test code=PHENCURN) <25 ng/mL URN METHADONE (test code=METHAURN) <300 ng/mL Urine Source? Clean CatchBASIC METABOLIC [id number] 03:35:00* Test Item Value Reference Range Comments SODIUM (test code=NA) 139 mmol/L 136-145 POTASSIUM (test code=K) 3.4 mmol/L 3.5-5.1 CHLORIDE (test code=CL) 104.0 mmol/L 98-107 CARBON DIOXIDE (test code=CO2) 28.0 mmol/L 21-32 ANION GAP (test code=GAP) 10.4 10-20 GLUCOSE (test code=GLU) 117 mg/dL 74-106 BLOOD UREA NITROGEN (test code=BUN) 9 mg/dL 7-18 GLOMERULAR FILTRATION RATE (test code=GFR) > 60 mL/min >=60 Estimated GFR by using Modified MDRD formula.Chronic kidney disease is defined as either kidney damageor GFR <60 mL/min/1.73 m2 for >3 months. CREATININE (test code=CREAT) 0.90 mg/dL 0.7-1.3 BUN/CREATININE RATIO (test code=BUN/CREA) 10.0 10-20 CALCIUM (test code=CA) 8.5 mg/dL 8.5-10.1 HEPATIC FUNCTION [id number] 03:35:00* Test Item Value Reference Range Comments TOTAL PROTEIN (test code=PROT) 6.3 gram/dL 6.4-8.2 ALBUMIN (test code=ALB) 3.8 g/dL 3.4-5.0 GLOBULIN (test code=GLOB) 2.5 gram/dL 2.7-4.2 ALBUMIN/GLOBULIN RATIO (test code=A/G) 1.5 0.75-1.50 BILIRUBIN TOTAL (test code=BILT) 0.50 mg/dL 0.0-1.0 BILIRUBIN DIRECT (test code=BILD) 0.19 mg/dL 0.0-0.20 SGOT/AST (test code=AST) 26 IUnit/L 15-37 SGPT/ALT (test code=ALT) 38 IUnit/L 12-78 ALKALINE PHOSPHATASE TOTAL (test code=ALKP) 93 IUnit/L 45-117 Note change in reference range due to change in reagent. CREATINE KINASE (CK)2018-07-29 03:35:00* Test Item Value Reference Range Comments CREATINE KINASE (CK) (test code=CK) 256 IUnit/L 26-208 [id number] 03:35:00* Test Item Value Reference Range Comments LIPASE (test code=LIP) 35 U/L 73.0-393.0 [id number] 03:35:00* Test Item Value Reference Range Comments ACETAMINOPHEN (test code=ACET) < 10 mcg/mL 10-30 A RANGE OF 10-30 mcg/mL IS A THERAPEUTIC RANGE. TOXIC CONCENTRATIONS: >150 mcg/mL AT 4 HOURS AFTER INGESTION >=50 mcg/mL AT 12 HOURS AFTER INGESTION [id number] 03:35:00* Test Item Value Reference Range Comments SALICYLATE (test code=VICKY) < 1.7 mg/dL 2.8-20.0 [id number] 03:35:00* Test Item Value Reference Range Comments ALCOHOL (test code=ALC) < 3 mg/dL 0.0-3.0 INTERPRETIVE DATA NOTE: POSITIVE SCREENING RESULTS SHOULD BE CONSIDERED PRESUMPTIVE.WHEN COLLECTED FOR MEDICAL PURPOSES ONLY. SPECIMEN WILL NOTBE COLLECTED BY CHAIN OF CUSTODY.IF A CONFIRMATION OF POSITIVE RESULTS IS DESIRED, ACONFIRMATION TEST MUST BE REQUESTED BY THE PHYSICIAN AT ANADDITIONAL CHARGE TO THE PATIENT. CBC W/O [id number] 03:17:00* Test Item Value Reference Range Comments WHITE BLOOD CELL (test code=WBC) 6.2 K/mm3 4.5-12.5 RED BLOOD CELL (test code=RBC) 4.39 mill/mm3 4.0-5.8 HEMOGLOBIN (test code=HGB) 12.6 gram/dL 13.0-17.5 HEMATOCRIT (test code=HCT) 38.9 % 42.0-52.0 MEAN CELL VOLUME (test code=MCV) 88.6 fL 80-98 MEAN CELL HGB (test code=MCH) 28.7 picogram 27.0-33.0 MEAN CELL HGB CONCETRATION (test code=MCHC) 32.4 gram/dL 33.0-36.0 RED CELL DISTRIBUTION WIDTH (test code=RDW) 12.7 % 11.6-16.2 PLATELET COUNT (test code=PLT) 241 K/mm3 150-450 MEAN PLATELET VOLUME (test code=MPV) 9.9 fL 6.7-11.0 BASIC METABOLIC [id number] 03:14:00* Test Item Value Reference Range Comments SODIUM (test code=NA) 139 mmol/L 136-145 POTASSIUM (test code=K) 3.4 mmol/L 3.5-5.1 CHLORIDE (test code=CL) 104.0 mmol/L 98-107 CARBON DIOXIDE (test code=CO2) mmol/L 21-32 ANION GAP (test code=GAP) 10-20 GLUCOSE (test code=GLU) mg/dL 74-106 BLOOD UREA NITROGEN (test code=BUN) mg/dL 7-18 GLOMERULAR FILTRATION RATE (test code=GFR) mL/min >=60 CREATININE (test code=CREAT) mg/dL 0.7-1.3 BUN/CREATININE RATIO (test code=BUN/CREA) 10-20 CALCIUM (test code=CA) mg/dL 8.5-10.1 HEPATIC FUNCTION [id number] 03:14:00* Test Item Value Reference Range Comments TOTAL PROTEIN (test code=PROT) gram/dL 6.4-8.2 ALBUMIN (test code=ALB) g/dL 3.4-5.0 GLOBULIN (test code=GLOB) gram/dL 2.7-4.2 ALBUMIN/GLOBULIN RATIO (test code=A/G) 0.75-1.50 BILIRUBIN TOTAL (test code=BILT) mg/dL 0.0-1.0 BILIRUBIN DIRECT (test code=BILD) mg/dL 0.0-0.20 SGOT/AST (test code=AST) IUnit/L 15-37 SGPT/ALT (test code=ALT) IUnit/L 12-78 ALKALINE PHOSPHATASE TOTAL (test code=ALKP) IUnit/L 45-117 CREATINE KINASE (CK)2018-07-29 03:14:00* Test Item Value Reference Range Comments CREATINE KINASE (CK) (test code=CK) IUnit/L 26-208 [id number] 03:14:00* Test Item Value Reference Range Comments LIPASE (test code=LIP) U/L 73.0-393.0 [id number] 03:14:00* Test Item Value Reference Range Comments ACETAMINOPHEN (test code=ACET) mcg/mL 10-30 [id number] 03:14:00* Test Item Value Reference Range Comments SALICYLATE (test code=VICKY) mg/dL 2.8-20.0 [id number] 03:14:00* Test Item Value Reference Range Comments ALCOHOL (test code=ALC) mg/dL 0-3 URINALYSIS [id number] 12:31:00* Test Item Value Reference Range Comments UA COLOR (test code=COLU) YELLOW YELLOW UA APPEARANCE (test code=APPU) CLEAR CLEAR UA GLUCOSE DIPSTICK (test code=DGLUU) NEGATIVE mg/dL NEGATIVE UA BILIRUBIN DIPSTICK (test code=BILU) NEGATIVE mg/dL NEGATIVE UA KETONE DIPSTICK (test code=KETU) 20 (1+) mg/dL NEGATIVE UA SPECIFIC GRAVITY (test code=SGU) 1.019 1.001-1.035 UA BLOOD DIPSTICK (test code=TYSON) Negative mg/dL NEGATIVE UA PH DIPSTICK (test code=LUIS) 6.0 5.0-8.0 UA PROTEIN DIPSTICK (test code=PROU) NEGATIVE mg/dL NEGATIVE UA UROBILINIOGEN DIPSTICK (test code=URO) 0.0-0.2 (NORMAL) mg/dL 0.0-0.2 UA NITRITE DIPSTICK (test code=ABEL) NEGATIVE NEGATIVE UA LEUKOCYTE ESTERASE W REFLEX (test code=LEUUR) NEGATIVE Abundio/uL NEGATIVE UA WBC (test code=WBCU) NONE SEEN per HPF 0-5 IN SOME URINARY TRACT INFECTIONS THERE MAY NOT BE ENOUGHWBCs IN THE URINE TO TRIGGER AN AUTOMATIC (REFLEX) URINECULTURE. A SEPERATE ORDER FOR URINE CULTURE IS RECOMMENDEDIF THERE IS STRONG SUPPORT FOR A URINARY TRACT INFECTIONCLINICALLY. Urine Source? Clean CatchDRUGS OF ABUSE SCREEN [id number] 12:31:00* Test Item Value Reference Range Comments URN COCAINE (test code=COCAURN) NEGATIVE <300 ng/mL URN CANNABINOIDS (test code=CANNABURN) POSITIVE <50 ng/mL This test provides only a preliminary test result. A morespecific alternate chemical method must be used in order toobtain a confirmed analytical result. Gas chromatography/mass spectrometry (GC/MS) is thepreferred confirmatory method. Other chemical confirmationmethods are available. Clinical consideration and professional judgment should be applied to any drug of abusetest result, particularly when preliminary positive resultsare used.Unconfirmed screening results must not be used fornon-medical purposes (e.g., employment testing, legaltesting). URN AMPHETAMINE (test code=AMPHETURN) NEGATIVE <1000 ng/mL URN BARBITURATE (test code=BARBITURN) NEGATIVE <200 ng/mL URN BENZODIAZEPINE (test code=BENZOURN) NEGATIVE <200 ng/mL URN OPIATES (test code=OPIATURN) NEGATIVE <300 ng/mL URN PHENCYCLIDINE (PCP) (test code=PHENCURN) NEGATIVE <25 ng/mL URN METHADONE (test code=METHAURN) NEGATIVE <300 ng/mL Urine Source? Clean CatchURINALYSIS [id number] 11:09:00* Test Item Value Reference Range Comments UA COLOR (test code=COLU) YELLOW YELLOW UA APPEARANCE (test code=APPU) CLEAR CLEAR UA GLUCOSE DIPSTICK (test code=DGLUU) NEGATIVE mg/dL NEGATIVE UA BILIRUBIN DIPSTICK (test code=BILU) NEGATIVE mg/dL NEGATIVE UA KETONE DIPSTICK (test code=KETU) 20 (1+) mg/dL NEGATIVE UA SPECIFIC GRAVITY (test code=SGU) 1.019 1.001-1.035 UA BLOOD DIPSTICK (test code=TYSON) Negative mg/dL NEGATIVE UA PH DIPSTICK (test code=LUIS) 6.0 5.0-8.0 UA PROTEIN DIPSTICK (test code=PROU) NEGATIVE mg/dL NEGATIVE UA UROBILINIOGEN DIPSTICK (test code=URO) 0.0-0.2 (NORMAL) mg/dL 0.0-0.2 UA NITRITE DIPSTICK (test code=ABEL) NEGATIVE NEGATIVE UA LEUKOCYTE ESTERASE W REFLEX (test code=LEUUR) NEGATIVE Abundio/uL NEGATIVE UA WBC (test code=WBCU) NONE SEEN per HPF 0-5 IN SOME URINARY TRACT INFECTIONS THERE MAY NOT BE ENOUGHWBCs IN THE URINE TO TRIGGER AN AUTOMATIC (REFLEX) URINECULTURE. A SEPERATE ORDER FOR URINE CULTURE IS RECOMMENDEDIF THERE IS STRONG SUPPORT FOR A URINARY TRACT INFECTIONCLINICALLY. Urine Source? Clean CatchDRUGS OF ABUSE SCREEN [id number] 11:09:00* Test Item Value Reference Range Comments URN COCAINE (test code=COCAURN) <300 ng/mL URN CANNABINOIDS (test code=CANNABURN) <50 ng/mL URN AMPHETAMINE (test code=AMPHETURN) <1000 ng/mL URN BARBITURATE (test code=BARBITURN) <200 ng/mL URN BENZODIAZEPINE (test code=BENZOURN) <200 ng/mL URN OPIATES (test code=OPIATURN) <300 ng/mL URN PHENCYCLIDINE (PCP) (test code=PHENCURN) <25 ng/mL URN METHADONE (test code=METHAURN) <300 ng/mL Urine Source? Clean CatchURINALYSIS [id number] 11:04:00* Test Item Value Reference Range Comments UA COLOR (test code=COLU) YELLOW YELLOW UA APPEARANCE (test code=APPU) CLEAR CLEAR UA GLUCOSE DIPSTICK (test code=DGLUU) NEGATIVE mg/dL NEGATIVE UA BILIRUBIN DIPSTICK (test code=BILU) NEGATIVE mg/dL NEGATIVE UA KETONE DIPSTICK (test code=KETU) 20 (1+) mg/dL NEGATIVE UA SPECIFIC GRAVITY (test code=SGU) 1.019 1.001-1.035 UA BLOOD DIPSTICK (test code=TYSON) Negative mg/dL NEGATIVE UA PH DIPSTICK (test code=LUIS) 6.0 5.0-8.0 UA PROTEIN DIPSTICK (test code=PROU) NEGATIVE mg/dL NEGATIVE UA UROBILINIOGEN DIPSTICK (test code=URO) 0.0-0.2 (NORMAL) mg/dL 0.0-0.2 UA NITRITE DIPSTICK (test code=ABEL) NEGATIVE NEGATIVE UA LEUKOCYTE ESTERASE W REFLEX (test code=LEUUR) NEGATIVE Abundio/uL NEGATIVE UA WBC (test code=WBCU) per HPF 0-5 Urine Source? Clean CatchDRUGS OF ABUSE SCREEN [id number] 11:04:00* Test Item Value Reference Range Comments URN COCAINE (test code=COCAURN) <300 ng/mL URN CANNABINOIDS (test code=CANNABURN) <50 ng/mL URN AMPHETAMINE (test code=AMPHETURN) <1000 ng/mL URN BARBITURATE (test code=BARBITURN) <200 ng/mL URN BENZODIAZEPINE (test code=BENZOURN) <200 ng/mL URN OPIATES (test code=OPIATURN) <300 ng/mL URN PHENCYCLIDINE (PCP) (test code=PHENCURN) <25 ng/mL URN METHADONE (test code=METHAURN) <300 ng/mL Urine Source? Clean Catch- XR CHEST 1 [id number] 10:52:00 FAX: Danitza Manzanares [phone] [place]: [address] St: [facility] [birth year] Age/S: 23/M [address] [facility] Unit #: [id number] Loc: [place] [id number] Phys: Danitza Maldonado MD Acct: [id number] Dis Date: Status: REG ER PHONE #: [phone] Exam Date: 07/13/2018 1033 FAX #: [phone] Reason: weakness EXAMS: CPT CODE: [id number] XR CHEST 1 V 00551 HISTORY: Weakness. C OMPARISON: None available. No acute infiltrates, effusion or conge stion is noted. Hyperinflation. The cardiac and mediastinal silhou ette are within normal limits. IMPRESSION: N o acute infiltrates, effusion or congestion. at 1052 Reported and s igned by: Robert Vaca M.D. CC: Danitza Maldonado MD Technologist: Herlinda Harrison RT(R) Trnscrd Date/Time/By: 07/13/2018 ([id number]) : By: [email or web address] Orig Print D/T: S: 07/13/2018 ([id number]) PAGE 1 Signed Report COMPREHENSIVE METABOLIC [id number] 10:50:00* Test Item Value Reference Range Comments SODIUM (test code=NA) 139 mmol/L 136-145 POTASSIUM (test code=K) 3.5 mmol/L 3.5-5.1 CHLORIDE (test code=CL) 106.0 mmol/L 98-107 CARBON DIOXIDE (test code=CO2) 22.0 mmol/L 21-32 ANION GAP (test code=GAP) 14.5 10-20 GLUCOSE (test code=GLU) 91 mg/dL 74-106 BLOOD UREA NITROGEN (test code=BUN) 10 mg/dL 7-18 GLOMERULAR FILTRATION RATE (test code=GFR) > 60 mL/min >=60 Estimated GFR by using Modified MDRD formula.Chronic kidney disease is defined as either kidney damageor GFR <60 mL/min/1.73 m2 for >3 months. CREATININE (test code=CREAT) 0.80 mg/dL 0.7-1.3 BUN/CREATININE RATIO (test code=BUN/CREA) 12.5 10-20 TOTAL PROTEIN (test code=PROT) 8.0 gram/dL 6.4-8.2 ALBUMIN (test code=ALB) 4.7 g/dL 3.4-5.0 GLOBULIN (test code=GLOB) 3.3 gram/dL 2.7-4.2 ALBUMIN/GLOBULIN RATIO (test code=A/G) 1.4 0.75-1.50 CALCIUM (test code=CA) 9.2 mg/dL 8.5-10.1 BILIRUBIN TOTAL (test code=BILT) 0.70 mg/dL 0.0-1.0 SGOT/AST (test code=AST) 14 IUnit/L 15-37 SGPT/ALT (test code=ALT) 19 IUnit/L 12-78 ALKALINE PHOSPHATASE TOTAL (test code=ALKP) 95 IUnit/L 45-117 Note change in reference range due to change in reagent. [id number] 10:50:00* Test Item Value Reference Range Comments LIPASE (test code=LIP) 56 U/L 73.0-393.0 [id number] 10:50:00* Test Item Value Reference Range Comments ALCOHOL (test code=ALC) < 3 mg/dL 0.0-3.0 INTERPRETIVE DATA NOTE: POSITIVE SCREENING RESULTS SHOULD BE CONSIDERED PRESUMPTIVE.WHEN COLLECTED FOR MEDICAL PURPOSES ONLY. SPECIMEN WILL NOTBE COLLECTED BY CHAIN OF CUSTODY.IF A CONFIRMATION OF POSITIVE RESULTS IS DESIRED, ACONFIRMATION TEST MUST BE REQUESTED BY THE PHYSICIAN AT ANADDITIONAL CHARGE TO THE PATIENT. COMPREHENSIVE METABOLIC [id number] 10:36:00* Test Item Value Reference Range Comments SODIUM (test code=NA) 139 mmol/L 136-145 POTASSIUM (test code=K) 3.5 mmol/L 3.5-5.1 CHLORIDE (test code=CL) 106.0 mmol/L 98-107 CARBON DIOXIDE (test code=CO2) mmol/L 21-32 ANION GAP (test code=GAP) 10-20 GLUCOSE (test code=GLU) mg/dL 74-106 BLOOD UREA NITROGEN (test code=BUN) mg/dL 7-18 GLOMERULAR FILTRATION RATE (test code=GFR) mL/min >=60 CREATININE (test code=CREAT) mg/dL 0.7-1.3 BUN/CREATININE RATIO (test code=BUN/CREA) 10-20 TOTAL PROTEIN (test code=PROT) gram/dL 6.4-8.2 ALBUMIN (test code=ALB) g/dL 3.4-5.0 GLOBULIN (test code=GLOB) gram/dL 2.7-4.2 ALBUMIN/GLOBULIN RATIO (test code=A/G) 0.75-1.50 CALCIUM (test code=CA) mg/dL 8.5-10.1 BILIRUBIN TOTAL (test code=BILT) mg/dL 0.0-1.0 SGOT/AST (test code=AST) IUnit/L 15-37 SGPT/ALT (test code=ALT) IUnit/L 12-78 ALKALINE PHOSPHATASE TOTAL (test code=ALKP) IUnit/L 45-117 [id number] 10:36:00* Test Item Value Reference Range Comments LIPASE (test code=LIP) U/L 73.0-393.0 [id number] 10:36:00* Test Item Value Reference Range Comments ALCOHOL (test code=ALC) mg/dL 0-3 CBC W/AUTO [id number] 10:31:00* Test Item Value Reference Range Comments WHITE BLOOD CELL (test code=WBC) 13.2 K/mm3 4.5-12.5 RED BLOOD CELL (test code=RBC) 5.34 mill/mm3 4.0-5.8 HEMOGLOBIN (test code=HGB) 15.7 gram/dL 13.0-17.5 HEMATOCRIT (test code=HCT) 45.8 % 42.0-52.0 MEAN CELL VOLUME (test code=MCV) 85.8 fL 80-98 MEAN CELL HGB (test code=MCH) 29.4 picogram 27.0-33.0 MEAN CELL HGB CONCETRATION (test code=MCHC) 34.3 gram/dL 33.0-36.0 RED CELL DISTRIBUTION WIDTH (test code=RDW) 12.5 % 11.6-16.2 RED CELL DISTRIBUTION WIDTH SD (test code=RDW-SD) 38.8 fL 37.0-51.0 PLATELET COUNT (test code=PLT) 258 K/mm3 150-450 MEAN PLATELET VOLUME (test code=MPV) 10.2 fL 6.7-11.0 NEUTROPHIL % (test code=NT%) 85.1 % 39.0-69.0 IMMATURE GRANULOCYTE % (test code=IG%) 0.3 % 0.0-5.0 LYMPHOCYTE % (test code=LY%) 6.2 % 25.0-55.0 MONOCYTE % (test code=MO%) 8.0 % 0.0-10.0 EOSINOPHIL % (test code=EO%) 0.2 % 0.0-5.0 BASOPHIL % (test code=BA%) 0.2 % 0.0-1.0 NUCLEATED RBC % (test code=NRBC%) 0.0 % 0-0 NEUTROPHIL # (test code=NT#) 11.19 K/mm3 1.8-7.7 IMMATURE GRANULOCYTE # (test code=IG#) 0.04 x10 3/uL 0-0.03 LYMPHOCYTE # (test code=LY#) 0.82 K/mm3 1.0-5.0 MONOCYTE # (test code=MO#) 1.05 K/mm3 0-0.8 EOSINOPHIL # (test code=EO#) 0.03 K/mm3 0.0-0.5 BASOPHIL # (test code=BA#) 0.02 K/mm3 0.0-0.2 NUCLEATED RBC # (test code=NRBC#) 0.00 K/mm3 0.0-0.1 MANUAL DIFF REQUIRED (test code=MDIFF) NO CBC W/AUTO [id number] 10:26:00* Test Item Value Reference Range Comments WHITE BLOOD CELL (test code=WBC) K/mm3 4.5-12.5 RED BLOOD CELL (test code=RBC) mill/mm3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
[2018-12-27] MEDS ORDERED: SODIUM CHLORIDE 0.9% 1000ML 1,000 ML IV STA (17:30)
[2018-12-27 17:56] LABS: BASOPHILS % 0.2 % (0.0-1.0); EOSINOPHILS % 0.3 % (0.0-6.0); HEMATOCRIT 45.8 % (38.2-49.6); HEMOGLOBIN 16.7 g/dL (14.0-18.0); LYMPHOCYTES # (AUTO) 0.9 (1.0-3.2); MEAN CORPUSCULAR HEMOGLOBIN 29.7 pg (28-32); MEAN CORPUSCULAR HGB CONC 36.5 g/dL (31-35); MEAN CORPUSCULAR VOLUME 81.5 fL (81-99); MONOCYTES # (AUTO) 0.6 (0.2-0.8); MONOCYTES % 9.2 % (4.4-11.3); NEUTROPHILS # (AUTO) 4.7 (2.1-6.9); NEUTROPHILS % 75.1 % (38.7-80.0); PLATELET COUNT 372 x10e3/uL (140-360); RED BLOOD COUNT 5.62 x10e6/uL (4.3-5.7); RED CELL DISTRIBUTION WIDTH 12.3 % (11.7-14.4)
[2018-12-27] MEDS ORDERED: HYOSCYAMINE SULFATE 0.5 MG/ML INJ IV ONE (18:00)
[2018-12-27] MEDS ORDERED: LORAZEPAM INJ 2 MG/ML VIAL IV ONE (18:00)
[2018-12-27] MEDS ORDERED: ONDANSETRON HCL INJ 2MG/ML 2ML 2 MG/ML VIAL IV ONE (18:00)
[2018-12-27] MEDS ORDERED: DICYCLOMINE HCL 20 MG/2 ML VIAL IM ONE ×2 (18:04→18:30)
[2018-12-27 18:09] LABS: ANION GAP 21.6 mmol/L (8-16); BLOOD UREA NITROGEN 13 mg/dL (7-26); BUN/CREATININE RATIO 13 (6-25); CARBON DIOXIDE 18 mmol/L (22-29); CHLORIDE 100 mmol/L (98-107); CREATININE, SERUM 1.01 mg/dL (0.72-1.25); EST GLOMERULAR FILTRATION RATE > 60 ML/MIN (60-); GLUCOSE 144 mg/dL (74-118); LIPASE 19 U/L (8-78); MAGNESIUM 1.7 MG/DL (1.3-2.1); POTASSIUM 3.6 mmol/L (3.5-5.1); SODIUM 136 mmol/L (136-145)
[2018-12-27 18:19] LABS: BILIRUBIN,URINE SMALL (NEGATIVE); CLARITY,URINE SL CLOUDY (CLEAR); COLOR,URINE YELLOW (YELLOW); KETONES,URINE 1+ (NEGATIVE); LEUKOCYTE ESTERASE ,URINE NEGATIVE (NEGATIVE); NITRITE,URINE NEGATIVE (NEGATIVE); PROTEIN,URINE DIPSTICK 2+ (NEGATIVE); URINE UROBILINOGEN 0.2 mg/dL (0.2 - 1)
[2018-12-27 18:27] LABS: AMPHETAMINES SCREEN,URINE NEGATIVE (NEGATIVE); BENZODIAZEPINES SCREEN,URINE POSITIVE (NEGATIVE); PHENCYCLIDINE SCREEN,URINE NEGATIVE (NEGATIVE)
[2018-12-27 18:29] LABS: CREATINE KINASE MB 0.4 ng/mL (0-5.0)
--- NOTE | 2018-12-27 18:35 | NUR ---
PATIENT REQUESTING SOMETHING TO DRINK. GIVEN PO CHALLENGE WITH WATER, JUICE, MARIAELENA.
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
[2018-12-27 19:28] LABS: BACTERIA,URINE FEW /HPF; WBC,URINE (MAN) 0-5 /HPF (0-5)
[2018-12-27 19:29] LABS: MUCUS,URINE MANY (RARE)
== END 2018-12-27 19:04 | disposition home or self-care (01) ==
LOC: ER 17:17
DX: R11.2 Nausea with vomiting, unspecified (principal); I10 Essential (primary) hypertension; F31.9 Bipolar disorder, unspecified; F17.210 Nicotine dependence, cigarettes, uncomplicated
CPT/HCPCS: 36415; 80048; 80307; 81001; 82550; 82553; 83690; 83735; 84484; 85025; 99284; J0500; J2060; J2405; J7030

== ENCOUNTER 2020-05-10 21:05 | Emergency (ER) | payer SELFPAY ==
[~2020-05-10] VITALS: Ht 182.9 cm; Wt 70.3 kg
== END 2020-05-11 00:46 | disposition home or self-care (01) ==
LOC: ER 21:44
DX: R09.89 Other specified symptoms and signs involving the circulatory and respiratory systems (principal); I10 Essential (primary) hypertension; F31.9 Bipolar disorder, unspecified
CPT/HCPCS: 70490; 99283

== ENCOUNTER 2020-10-09 19:28 | Emergency (ER) | payer SELFPAY ==
[~2020-10-09] VITALS: Ht 182.9 cm; Wt 70.3 kg
[2020-10-09 21:20] LABS: AMPHETAMINES SCREEN,URINE NEGATIVE (NEGATIVE); BENZODIAZEPINES SCREEN,URINE POSITIVE (NEGATIVE); PHENCYCLIDINE SCREEN,URINE NEGATIVE (NEGATIVE)
== END 2020-10-09 20:30 | disposition left against medical advice (07) ==
LOC: ER 19:38
DX: F11.10 Opioid abuse, uncomplicated (principal); F12.10 Cannabis abuse, uncomplicated
CPT/HCPCS: 80307